=== PATIENT | female | born 1980 | race Caucasian/White ===

== ENCOUNTER 2019-06-11 21:04 | Observation (INO) ==
[2019-06-11] MEDS ORDERED: IOPAMIDOL 100 ML BOTTLE IV ONE (21:05)
[2019-06-11] MEDS ORDERED: ACETAMINOPHEN 325 MG TABLET PO ONE (21:29)
--- NOTE | 2019-06-11 21:33 | Emergency Department Note ---
General Adult HPI - General Chief complaint: Fever Stated complaint: body aches Time Seen by Provider: 06/11/19 21:10 Source: patient Mode of arrival: ambulatory Limitations: no limitations - History of Present Illness HPI Narrative: 39-year-old female patient presents to the emergency department with 2 days history of worsening aggressive myalgias and epigastric pain. Patient tells me her body aches extended from her feet up into her legs, they've gone into her arms, and into her back. She describes her epigastric pain as severe, sharp pain. She denies history of peptic ulcer disease or acid reflux. She was recently treated for a strep throat by her primary care provider 1 week ago with Augmentin. She denies active fevers fevers, sweats, or chills. She is febrile in triage 99.0. She denies photophobia or vision changes. She denies sinus congestion, runny nose, or cough. She denies throat pain today. She denies shortness of breath. She denies retrosternal chest pain or palpitations. She denies nausea, vomiting, or diarrhea. She denies focal weakness. Review of her active probably shows the following: Chronic left hip pain, seasonal affective disorder, essential hypertension, tobacco abuse, history of pulmonary embolism (10/2010) 5 and D deficiency, history of pelvic fracture (10/2010), obesity, low back pain, hyperlipidemia, and anemia. - Related Data Previous Rx's Medication Instructions Recorded bupropion HCl 150 mg 24 hr tablet, 150 mg PO QAM #90 tab 06/17/18 extended release gabapentin 100 mg capsule See Rx Instructions PO QHS #30 cap 10/20/18 tramadol 50 mg tablet See Dose Instructions PO QHS PRN 10/20/18 #30 tab Allergies Allergy/AdvReac Type Severity Reaction Status Date / Time lisinopril AdvReac Intermediate tickle in Verified 06/11/19 21:08 the throat Review of Systems All systems ED: reviewed and negative except as stated. Past Medical History - Social History smoking status: Current every day smoker Physical Exam Limitations: no limitations General appearance: alert, grimacing, other (patient appears acutely ill.) Head: atraumatic, normocephalic Eye: Present: normal appearance, PERRL, EOMI. Absent: scleral icterus, conjunctival injection ENT: Present: normal oropharynx, mucous membranes moist, TM's normal bilaterally, other (no tonsillar exudate or erythema.) Neck: Present: full ROM, trachea midline. Absent: tenderness, meningismus, lymphadenopathy Chest: Present: symmetric chest wall rise Respiratory: Present: normal lung sounds bilaterally. Absent: respiratory distress, wheezes, stridor, accessory muscle use, prolonged expiratory phase Cardiovascular: Present: regular rate, normal rhythm. Absent: systolic murmur, diastolic murmur Abdominal: Present: soft, tenderness, guarding, hyperactive bowel sounds (hyperactive bowel tones throughout.). Absent: distention, rebound, rigidity, organomegaly, mass Abdominal tenderness: Present: epigastrium, severe Extremities: Present: full ROM, tenderness, calf tenderness (bilateral tenderness). Absent: pedal edema, pretibial edema, joint swelling Back: Present: full ROM, tenderness. Absent: CVA tenderness (R) (tenderness throughout the entire back on exam.), CVA tenderness (L), muscle spasm, spinous process tenderness Neurological: Present: alert, oriented X3, CN II-XII intact, normal gait, reflexes normal. Absent: motor sensory deficit Psychiatric: Present: anxious Skin: Present: warm, dry, other (flushed) Course Course Narrative: Patient was brought into the emergency department and a history and physical exam was performed. Saline lock was established and laboratory studies were drawn. Influenza A/B swab was obtained. Due the patient's condition and a bdominal pain on exam a abdominal/pelvic CT scan with contrast was ordered. Normal saline at thousand milliliter bolus was provided. Acetaminophen 975 mg was given by mouth. Influenza swab was negative for A/P. At shift change I consulted with my collaborating physician (Dr. Natarajan) about the patient's condition and further evaluation. At this time Dr. Natarajan is will assume the patient's care moving forward. All further treatment decisions and modalities will be carried out by him. Vital Signs Temperature 99.2 F H 06/11/19 21:05 Pulse Rate 90 06/11/19 21:05 Respiratory Rate 18 06/11/19 21:05 Blood Pressure 168/94 06/11/19 21:05 Pulse Oximetry (%) 96 06/11/19 21:05 Temperature 99.2 F H 06/11/19 21:05 Pulse Rate 90 06/11/19 21:05 Respiratory Rate 18 06/11/19 21:05 Blood Pressure 168/94 06/11/19 21:05 Pulse Oximetry (%) 96 06/11/19 21:05 Disposition Pt seen by WASTEWATER TREATMENT ENGINEER/PA only: No (Dr. Natarajan) Clinical Impression: Myalgia Abdominal pain Qualifiers: Abdominal location: epigastric Qualified Code(s): R10.13 - Epigastric pain Disposition: Still a Patient Condition: Good Additional Instructions: At shift change Dr. Natarajan has assumed the patient's care. All further treatment decisions and modalities will be carried out by Dr. Natarajan at this time. Referrals: Carmelo Riggins PA-C [Primary Care Provider] - Time of Disposition: 21:56
[2019-06-11] MEDS ORDERED: 0.9 % SODIUM CHLORIDE 1,000 ML IV ONE (21:38)
[2019-06-11 21:56] LABS: POC Blood Urea Nitrogen 8 mg/dl (6-20); POC CO2 23 mmol/L (22-30); POC Chloride 104 mmol/L (96-108); POC Creatinine 0.6 mg/dl (0.6-1.1); POC Glucose, Random 114 mg/dL (70-105); POC Potassium 3.5 mmol/L (3.3-5.1); POC Sodium 138 mmol/L (133-145)
[2019-06-11 22:24] LABS: Basophils # (Auto) 0.1 K/mcL (0.0-0.3); Basophils % (Auto) 0.6 % (0.0-2.0); Eosinophils # (Auto) 0.2 K/mcL (0.0-0.7); Hematocrit 37.4 % (36.0-48.0); Hemoglobin 12.9 g/dL (12.0-15.0); Lymphocytes # (Auto) 1.9 K/mcL (1.5-4.8); Lymphocytes % (Auto) 12.4 % (15.5-49.0); Mean Cell Volume 87.9 fL (80.0-100.0); Mean Corpuscular HGB Conc 34.6 g/dL (31.0-36.0); Mean Platelet Volume 8.7 fL (7.4-10.4); Monocytes # (Auto) 1.4 K/mcL (0.1-0.9); Platelet Count 301 K/mcL (140-440); RBC 4.25 M/mcL (4.00-5.20); Red Cell Distribution Width 12.5 % (11.5-14.5); WBC 15.3 K/mcL (4.5-11.0)
[2019-06-11 22:47] LABS: ALT/SGPT 10 U/l (0-40); AST/SGOT 9 U/l (0-37); Albumin 3.8 gm/dL (3.2-5.2); Alkaline Phosphatase 60 U/L (39-117); Bilirubin,Total 0.4 mg/dL (0.0-1.0); Blood Urea Nitrogen 10 mg/dl (6-20); Calcium 8.8 mg/dl (8.6-10.4); Carbon Dioxide 21 mmol/L (22-30); Chloride 98 mmol/L (96-108); Globulin 3.7 gm/dL (2.2-3.7); Glomerular Filtration Rate 108; Glucose 113 mg/dL (70-105)
--- NOTE | 2019-06-11 23:19 | Emergency Department Note ---
General Adult HPI - General Chief complaint: Fever Stated complaint: body aches Time Seen by Provider: 06/11/19 21:10 Source: patient Mode of arrival: ambulatory Limitations: no limitations - History of Present Illness HPI Narrative: This 39-year-old patient is checked out to me at shift change by Luca Pruitt PA-C. Initially started the work-up and discussed the patient with me. After shift change Mr. Pruitt left, and I assumed full care of the patient. I reviewed his note and agree with his evaluation management and documentation. Additionally I interviewed the patient myself and confirmed his findings. She has right upper quadrant and epigastric pain is been going on for 2 days. She still has her gallbladder. - Related Data Previous Rx's Medication Instructions Recorded bupropion HCl 150 mg 24 hr tablet, 150 mg PO QAM #90 tab 06/17/18 extended release gabapentin 100 mg capsule See Rx Instructions PO QHS #30 cap 10/20/18 tramadol 50 mg tablet See Dose Instructions PO QHS PRN 10/20/18 #30 tab Allergies Allergy/AdvReac Type Severity Reaction Status Date / Time lisinopril AdvReac Intermediate tickle in Verified 06/11/19 21:08 the throat Past Medical History - Social History smoking status: Current every day smoker Physical Exam Arias sign positive. Epigastric tenderness noted Limitations: no limitations General appearance: alert, grimacing, other (patient appears acutely ill.) Course Vital Signs Temperature 99.2 F H 06/11/19 21:05 Pulse Rate 90 06/11/19 21:05 Respiratory Rate 18 06/11/19 21:05 Blood Pressure 168/94 06/11/19 21:05 Pulse Oximetry (%) 96 06/11/19 21:05 Temperature 100.1 F H 06/11/19 21:50 Pulse Rate 90 06/11/19 21:05 Respiratory Rate 18 06/11/19 21:05 Blood Pressure 168/94 06/11/19 21:05 Pulse Oximetry (%) 96 06/11/19 21:05 Medical Decision Making - Lab Data Lab results reviewed: Yes I reviewed the patient's lab results. Result diagrams: 06/11/19 21:40 06/11/19 21:40 Lab Results 06/11/19 06/11/19 06/11/19 Range/Units 21:40 21:40 21:40 WBC 15.3 H (4.5-11.0) K/mcL RBC 4.25 (4.00-5.20) M/mcL Hgb 12.9 (12.0-15.0) g/dL Hct 37.4 (36.0-48.0) % POC Hct 36.0 (36.0-48.0) % MCV 87.9 (80.0-100.0) fL MCH 30.4 (26.0-34.0) pg MCHC 34.6 (31.0-36.0) g/dL RDW 12.5 (11.5-14.5) % Plt Count 301 (140-440) K/mcL MPV 8.7 (7.4-10.4) fL Gran % 77.0 (38.0-78.0) % Lymph % (Auto) 12.4 L (15.5-49.0) % [place] % (Auto) 9.0 (1.0-12.0) % Eos % (Auto) 1.0 (0.0-7.0) % Baso % (Auto) 0.6 (0.0-2.0) % Gran # 11.7 H (1.8-8.0) K/mcL Lymph # (Auto) 1.9 (1.5-4.8) K/mcL [place] # (Auto) 1.4 H (0.1-0.9) K/mcL Eos # (Auto) 0.2 (0.0-0.7) K/mcL Baso # (Auto) 0.1 (0.0-0.3) K/mcL POC Sodium 138 (133-145) mmol/L Sodium 133 (133-145) mmol/L POC Potassium 3.5 (3.3-5.1) mmol/L Potassium 3.6 (3.3-5.1) mmol/L POC Chloride 104 (96-108) mmol/L Chloride 98 (96-108) mmol/L Carbon Dioxide 21 L (22-30) mmol/L POC Total CO2 23 (22-30) mmol/L Anion Gap 14.0 (8-16) POC BUN 8 (6-20) mg/dl BUN 10 (6-20) mg/dl Creatinine 0.7 (0.6-1.1) mg/dl POC Creatinine 0.6 (0.6-1.1) mg/dl GFR Calculation 108 Glucose 113 H (70-105) mg/dL POC Glucose 114 H (70-105) mg/dL Calcium 8.8 (8.6-10.4) mg/dl POC WB Ioniz Calcium 1.00 L (1.16-1.32) mmol/L Magnesium 2.1 (1.6-2.5) mg/dL Total Bilirubin 0.4 (0.0-1.0) mg/dL AST 9 (0-37) U/l ALT 10 (0-40) U/l Alkaline Phosphatase 60 (39-117) U/L Total Protein 7.5 (5.9-8.4) gm/dL Albumin 3.8 (3.2-5.2) gm/dL Globulin 3.7 (2.2-3.7) gm/dL Albumin/Globulin Ratio 1.0 (1.0-2.3) Lipase 17 (7-60) U/L Influenza swab is negative. Urinalysis [id number] dipstick is negative - Radiology Data Radiology results reviewed: Yes I reviewed the patient's radiology results. CT scan of the abdomen pelvis with contrast shows inflammation around the sydnie hepatis but otherwise normal scan Ultrasound of the gallbladder shows thickened wall but normal common bile duct. Shadow could be gallstone Disposition Pt seen by SHIRT MARKER/PA only: No Clinical Impression: Cholecystitis Summary: Initial laboratory and CT scan suggest a gallbladder cause so ultrasound is orde red. She is being treated with Tylenol for fever and IV fluids. We will add IV Nexium and Zofran After above-noted treatment her pain is getting better. However ultrasound exacerbated belly pain. We will give her a little bit more medicine and GI cocktail. I discussed findings with the patient and her significant other. I discussed case with Dr. Jude Villalpnado, general surgeon. Concerned that she has a fever and elevated white count in the setting of cholecystitis. He agreed to accept the patient for further care and evaluation in the hospital. I will write holding orders. We will keep her n.p.o. and treat her nausea and pain. He will visit with her in the morning Disposition: Xfer As Outpt/Obs ([facility]) Condition: Good Referrals: Carmelo Riggins PA-C [Primary Care Provider] -
[2019-06-11] MEDS ORDERED: ONDANSETRON 4 MG/2 ML VIAL IV ONE (23:21)
[2019-06-11] MEDS ORDERED: ESOMEPRAZOLE 40 MG VIAL IV SCH (23:30)
[2019-06-12] MEDS ORDERED: PHENobarb/HYOSCY/ATROPINE/SCOP 1 DOSE BOTTLE PO ONE (00:04)
[2019-06-12] MEDS: 0.9 % SODIUM CHLORIDE 1,000 ML IV SCH ×2 (01:00→11:47)
[2019-06-12] MEDS ORDERED: PIPERACILLIN SODIUM/TAZOBACTAM 3.375 GM in DEXTROSE 5% IN WATER 50 ML IV ONE (01:10)
[2019-06-12] MEDS ORDERED: NALOXONE HCL 0.4 MG/ML VIAL IV PRN (01:23)
[2019-06-12] MEDS: PIPERACILLIN SODIUM/TAZOBACTAM 3.375 GM in DEXTROSE 5% IN WATER 50 ML IV SCH ×4 (01:41→20:30)
[2019-06-12] MEDS ORDERED: HYDROmorphone 2 MG/ML VIAL ONE ×2 (01:49→05:00)
[2019-06-12 02:00] LABS: POC Calcium, Ionized 1.04 mmol/L (1.16-1.32)
[2019-06-12] MEDS ORDERED: ACETAMINOPHEN 1,000 MG/100 ML BOTTLE IV ONE (02:46)
[2019-06-12] MEDS: ACETAMINOPHEN 1,000 MG/100 ML BOTTLE IV SCH ×4 (03:02→19:41)
[2019-06-12] MEDS ORDERED: KETOROLAC 30 MG/ML VIAL ONE (05:00)
[2019-06-12] MEDS: ONDANSETRON 4 MG/2 ML VIAL IV PRN ×2 (05:10→17:10)
--- NOTE | 2019-06-12 06:22 | Cat Scan Report ---
CLINICAL INFORMATION: Epigastric pain for 2 days COMPARISON: Previous CT scan dated 11/08/2010 TECHNIQUE: Axial images were obtained through the abdomen and pelvis. Sagittally and coronally reformatted images. 80 mL Isovue 370 injected intravenously. FINDINGS: Lung bases:3 subpleural noncalcified pulmonary parenchymal nodules at the left lung base. These are unchanged since 2011 and are benign. Lung bases are otherwise negative. There is no pleural fluid. No pericardial fluid. Liver:Negative. No hepatic abnormality. The contour is smooth. There is no evidence for cirrhosis. There is no ascites Gallbladder, billary:Gallbladder is not distended. No calcified gallstones. There is no intra or extrahepatic bile duct dilatation. Gallbladder ultrasound may be helpful for further evaluation Spleen:Negative. No splenomegaly. Normal enhancement of splenic and portal veins Pancreas:No pancreatic mass. Pancreatic duct is not dilated. No significant peripancreatic inflammatory change. Adrenal glands:Negative Kidneys, ureters, bladder:Kidneys are negative. No solid or cystic mass. There is no hydronephrosis. There is a 4 mm nonobstructing left lower pole calculus. No ureteral calculi. No ureteral stone. There is no bladder stone. Gastrointestinal:Colon is negative. No detectable mass. There is no diverticulitis. Small bowel is negative. No mechanical small bowel obstruction. Appendix is negative. No appendicitis. Vascular:Abdominal aorta is negative. No abdominal aortic aneurysm Lymphatic:No retroperitoneal, para-aortic adenopathy. No pathologic mesenteric adenopathy Mesentery, peritoneum:No free intraperitoneal fluid. No intra-abdominal abscess. There is no pneumoperitoneum. Reproductive:Uterus is anteflexed. There is no adnexal mass Musculoskeletal:Lumbar vertebral body heights are normal. No compression deformities. Normal lumbar lordosis. Sacrum is negative. Patient has undergone extensive left hemipelvic surgery with plate and screw fixation for treatment of old pelvic fracture. There are 2 screws within the left pubic bone which into the extrapelvic soft tissues. No acute pelvic fracture. Hips are negative. Examination was initially interpreted by [facility] IMPRESSION: 1. Negative appendix 2. Gallbladder is collapsed. No calcified gallstones. No dilated bile ducts 3. Nonobstructing left lower pole renal calculus The exam was performed using radiation dose optimization techniques including, but not limited to, automated exposure control, adjustment of the mA and/or kV according to patient size and use of iterative reconstruction technique. Interpreted and Authenticated by: Andrew Aviles 06/12/19
--- NOTE | 2019-06-12 06:26 | Ultrasound Report ---
CLINICAL INFORMATION: Abdominal pain TECHNIQUE: Grayscale and color flow Doppler spectral imaging COMPARISON: None. FINDINGS: Gallbladder wall measures 2.8 mm. This is consistent with borderline thickening. There is no pericholecystic fluid. There are no gallstones. Common bile duct measures 5 mm. No intrahepatic bile duct dilatation Liver is negative. No focal intrahepatic abnormality. Liver contour is smooth. Visualized portions of pancreas are negative. Normal hepatopedal portal venous flow. Right kidney measures 12.7 x 4.8 x 5.1 cm. No solid or cystic mass IMPRESSION: 1. Borderline gallbladder wall thickening. No cholelithiasis. 2. Otherwise negative examination Interpreted and Authenticated by: Andrew Aviles 06/12/19
[2019-06-12] MEDS: HYDROmorphone 2 MG/ML VIAL IV PRN ×2 (09:40→18:00)
[2019-06-12] MEDS ORDERED: PROMETHAZINE 25 MG/ML VIAL IV PRN (10:24)
[2019-06-12 11:22] LABS: Basophils # (Auto) 0 K/mcL (0.0-0.3); Basophils % (Auto) 0.2 % (0.0-2.0); Eosinophils # (Auto) 0.1 K/mcL (0.0-0.7); Eosinophils % (Auto) 0.9 % (0.0-7.0); Granulocytes % (Auto) 78.6 % (38.0-78.0); Hemoglobin 11.8 g/dL (12.0-15.0); Lymphocytes # (Auto) 1.8 K/mcL (1.5-4.8); Lymphocytes % (Auto) 12.8 % (15.5-49.0); Mean Cell Volume 90.9 fL (80.0-100.0); Mean Corpuscular HGB Conc 33.7 g/dL (31.0-36.0); Mean Platelet Volume 8.4 fL (7.4-10.4); Monocytes % (Auto) 7.5 % (1.0-12.0); Platelet Count 254 K/mcL (140-440); RBC 3.85 M/mcL (4.00-5.20); Red Cell Distribution Width 13.4 % (11.5-14.5); WBC 13.7 K/mcL (4.5-11.0)
[2019-06-12] MEDS: ESOMEPRAZOLE 40 MG VIAL IV SCH ×2 (11:48→17:36)
--- NOTE | 2019-06-12 11:54 | General Surg History&Physical ---
History of Present Illness Patient information: Note initiated : 06/12/19 at 11:52 am Service Date, if different from initiated Date: [] Patient: Adonis Rogers a 39 y/o F admitted on 06/12/19 for body aches. Chief Complaint: [] HPI: Ms. Rogers is a 39 year old F admitted with abdominal pain and diffuse muscle aches. The patient developed severe abdominal pain and diffuse body aches, sore throat last week. She was seen in the emergency room and had swabbing for Streptococcus. However, the swab was negative. She nevertheless was treated with 7 days of amoxicillin and then felt fine. She later developed cramps and most of her muscles. This. Her thighs and arms were most involved. She had epigastric pain but no nausea and vomiting. She did not have diarrhea. No one else in the family has been ill. Patient was seen in the emergency room and had a CT of the abdomen which was nondiagnostic. She had an ultrasound of the upper abdomen which was nondiagnostic. She does not have gallstones. Labs reveal white count of 15,000. Her CMP does not reveal any elevation of liver transaminases and her lipase is also normal. Review of Systems - Constitutional weight loss (intentional 40 pound weight loss over the past year) - Respiratory no cough, no pain with cough - Gastrointestinal abdominal pain, dyspepsia, heartburn - Musculoskeletal arthralgias, muscle cramps, myalgias, stiffness - Integumentary no pruritus, no rash - Neurological no headache(s), no syncope, no tremor(s) - Psychiatric no anxiety, no depression - Hematologic/Lymphatic no easy bleeding, no easy bruising, no lymphadenopathy - Allergic/Immunologic no tongue swelling, no throat swelling, no uticaria, no wheezing, no lip swelling Past History Past medical history: History of hypertension which resolved with weight loss. Seasonal depression Chronic Pain Past surgical history: Left acetabular repair Past family history: Mother age 58, alive and well. Father age 60 with coronary artery disease, hypertension, diabetes mellitus. Siblings healthy Past social history: Tobacco one pack per day for over 15 years. Alcohol twice weekly Drugs denies use Medications and Allergies Home Medications Medication Instructions Recorded Confirmed Type bupropion HCl 150 mg 24 hr tablet, 150 mg PO QAM #90 tab 06/17/18 06/12/19 Rx extended release tramadol 50 mg tablet See Dose Instructions PO QHS PRN 10/20/18 06/12/19 Rx #30 tab Amoxicillin 500 mg PO TID 06/12/19 06/12/19 History Gabapentin [Neurontin] See Rx Instructions PO TIDP PRN 06/12/19 06/12/19 History Allergies Allergy/AdvReac Type Severity Reaction Status Date / Time lisinopril AdvReac Intermediate tickle in Verified 06/11/19 21:08 the throat Exam Temp Pulse Resp BP Pulse Ox 98.1 F 69 16 103/75 94 06/12/19 07:25 06/12/19 04:00 06/12/19 07:25 06/12/19 07:25 06/12/19 07:25 - General physical appearance well developed, well nourished, no distress, moderate pain - Eyes PERRL, normal ocular movement - ENT normal pinna, normal nares, normal mucosa, no hearing loss, no congestion - Head Head exam IM: Present: atraumatic, normocephalic - Neck no masses, no bruits, trachea midline, no lymphadenopathy, no venous distension - Cardiovascular Cardiovascular exam IM: Present: normal rate and rhythm, RRR, +S1, +S2. Absent: JVD, tachycardia - Respiratory normal expansion, normal respiratory effort, clear to auscultation - Abdomen Abdomen: Present: soft, tender (epigastric tenderness with mild guarding; diffuse lower abdominal tenderness; hyperactive bowel sounds), bowel sounds Hernia: Present: none - Genitourinary Present: normal external genitalia - Integumentary Present: no rash, no growths, no abnormal pigmentation - Neurologic Present: normal coordination, normal sensation - Musculoskeletal Present: normal gait, normal posture, other (diffuse soft tissue tenderness of upper extremities ; paraspinous muscle,. Thigh and calf bilaterally) - Psychiatric Present: oriented to time, oriented to person, oriented to place, speech is normal, memory intact Assessment and Plan (1) Abdominal pain May have clear liquids. Check CRP and sedimentation rate. Check CPK. Follow-up CBC in the a.m. Status: Acute (2) Pain of soft tissue of extremity Acetaminophen and Toradol for pain control Status: Acute
[2019-06-12 11:57] LABS: Erythrocyte Sedimentation Rate 82 mm/hr (0-20)
[2019-06-12] MEDS ORDERED: CYCLOBENZAPRINE 10 MG TABLET PO PRN (12:17)
[2019-06-12] MEDS: KETOROLAC 30 MG/ML VIAL IV PRN ×2 (13:04→19:40)
[2019-06-12] MEDS ORDERED: ESOMEPRAZOLE 40 MG VIAL IV SCH (17:00)
[2019-06-13] MEDS: 0.9 % SODIUM CHLORIDE 1,000 ML IV SCH ×2 (00:08→09:36)
[2019-06-13] MEDS: ACETAMINOPHEN 1,000 MG/100 ML BOTTLE IV SCH ×4 (01:32→19:44)
[2019-06-13] MEDS: KETOROLAC 30 MG/ML VIAL IV PRN ×3 (01:35→16:23)
[2019-06-13] MEDS: PIPERACILLIN SODIUM/TAZOBACTAM 3.375 GM in DEXTROSE 5% IN WATER 50 ML IV SCH ×4 (02:33→20:18)
[2019-06-13 05:29] LABS: Basophils # (Auto) 0 K/mcL (0.0-0.3); Basophils % (Auto) 0.2 % (0.0-2.0); Eosinophils # (Auto) 0.1 K/mcL (0.0-0.7); Eosinophils % (Auto) 0.8 % (0.0-7.0); Granulocytes % (Auto) 80.3 % (38.0-78.0); Hematocrit 32.2 % (36.0-48.0); Lymphocytes # (Auto) 1.7 K/mcL (1.5-4.8); Lymphocytes % (Auto) 11.9 % (15.5-49.0); Mean Cell Volume 90.3 fL (80.0-100.0); Mean Corpuscular HGB Conc 34.1 g/dL (31.0-36.0); Mean Platelet Volume 8.4 fL (7.4-10.4); Monocytes % (Auto) 6.8 % (1.0-12.0); Platelet Count 276 K/mcL (140-440); RBC 3.56 M/mcL (4.00-5.20); Red Cell Distribution Width 13.5 % (11.5-14.5); WBC 14.3 K/mcL (4.5-11.0)
[2019-06-13 06:10] LABS: Erythrocyte Sedimentation Rate 102 mm/hr (0-20)
[2019-06-13] MEDS: ESOMEPRAZOLE 40 MG VIAL IV SCH ×2 (07:48→16:23)
--- NOTE | 2019-06-13 13:34 | General Surgery Progress Note ---
Subjective Patient reports: feels better, pain is less, tolerating liquids well, flatus, afebrile Narrative: Note initiated : 06/13/19 at 1:32 pm Service Date, if different from initiated Date: [] Patient: Adonis Rogers 39 y/o F admitted on 06/12/19 for body aches. Chief Complaint: [patient still has significant soft tissue pain and joint pain. This is her primary concern. She does have some abdominal pain with it is significantly improved. She does not have nausea or vomiting. White blood count 14.3, hemoglobin 11, hematocrit 32.2, CRP 13, CK 39.] Objective Temp Pulse Resp BP Pulse Ox 98.2 F 82 18 139/91 97 06/13/19 08:00 06/13/19 08:00 06/13/19 08:00 06/13/19 08:00 06/13/19 08:00 - Additional Data Intake & Output - Last 24 hours: Intake & Output 06/11/19 06/12/19 06/13/19 06/14/19 06:59 05:59 05:59 05:59 Intake Total 3700 1047 Output Total 1400 400 Balance 2300 647 Weight 204 lb 14.4 oz - General physical appearance well developed, well nourished, moderate distress, moderate pain - Eyes PERRL, normal ocular movement - ENT normal pinna, normal nares, normal mucosa, no hearing loss, no congestion - Neck no masses, no bruits, trachea midline, no lymphadenopathy, no venous distension - Respiratory normal expansion, normal respiratory effort, clear to auscultation - Cardiovascular Cardiovascular exam: Present: normal rate and rhythm, RRR, +S1, +S2. Absent: JVD, tachycardia - Abdomen tender (mild epigastric tenderness), bowel sounds (. Normal active bowel sounds) - Integumentary no rash, no growths, no abnormal pigmentation - Neurologic normal coordination, normal sensation - Musculoskeletal normal gait, normal posture - Psychiatric oriented to time, oriented to person, oriented to place, speech is normal, memory intact - Labs 06/13/19 05:00 06/11/19 21:40 Assessment and Plan (1) Abdominal pain Status: Acute Assessment and plan: Symptoms significantly improved. Saline lock IV. Soft diet as tolerated Current Visit: Yes (2) Pain of soft tissue of extremity Status: Acute Assessment and plan: Solu-Medrol 62.5 mg IV every 12 hours 2 doses. Continue Toradol and acetaminophen Current Visit: Yes - Time Spent With Patient Total time spent is greater than 50% in coordination of care (as documented) at patient's floor/unit and/or counseling patient:
[2019-06-13] MEDS: methylPREDNISolone SOD SUCC 125 MG/2 ML VIAL IV SCH ×2 (14:43→23:29)
[2019-06-14] MEDS: ACETAMINOPHEN 1,000 MG/100 ML BOTTLE IV SCH ×2 (01:44→07:42)
[2019-06-14] MEDS: PIPERACILLIN SODIUM/TAZOBACTAM 3.375 GM in DEXTROSE 5% IN WATER 50 ML IV SCH ×2 (02:13→09:00)
[2019-06-14 06:58] LABS: Basophils # (Auto) 0 K/mcL (0.0-0.3); Basophils % (Auto) 0 % (0.0-2.0); Eosinophils # (Auto) 0 K/mcL (0.0-0.7); Eosinophils % (Auto) 0 % (0.0-7.0); Hematocrit 33.8 % (36.0-48.0); Hemoglobin 11.2 g/dL (12.0-15.0); Lymphocytes # (Auto) 0.8 K/mcL (1.5-4.8); Lymphocytes % (Auto) 5.2 % (15.5-49.0); Mean Cell Volume 90.6 fL (80.0-100.0); Mean Corpuscular HGB Conc 33.1 g/dL (31.0-36.0); Mean Platelet Volume 8.9 fL (7.4-10.4); Monocytes # (Auto) 0.1 K/mcL (0.1-0.9); Monocytes % (Auto) 0.8 % (1.0-12.0); Platelet Count 281 K/mcL (140-440); RBC 3.73 M/mcL (4.00-5.20); WBC 14.8 K/mcL (4.5-11.0)
[2019-06-14] MEDS: KETOROLAC 30 MG/ML VIAL IV PRN ×2 (07:41→13:41)
[2019-06-14] MEDS: ESOMEPRAZOLE 40 MG VIAL IV SCH (07:41)
[2019-06-14] MEDS: methylPREDNISolone SOD SUCC 125 MG/2 ML VIAL IV SCH (09:12)
--- NOTE | 2019-06-14 13:22 | Discharge Summary ---
Providers - Providers Patient information: Note initiated : 06/14/19 at 1:18 pm Service Date, if different from initiated Date: [] Patient: Adonis Rogers 39 y/o F admitted on 06/12/19 for body aches. Chief Complaint: [] Date of admission: 06/12/19 Discharge date: 06/14/19 Attending physician: Corrie Villalpando Hospitalization Hospital Course: 39-year-old female admitted on 12 June with complaint of abdominal pain and diffuse muscle aches. The patient has a history of severe abdominal pain and diffuse muscle aches and sore throat over the past week. She was seen in the emergency room where evaluation was negative. Pharyngeal swab for streptococcus was negative. However, she was treated with 7 days of amoxicillin. She then developed cramps and muscle aches which were more prominent in her thighs and arms. She had epigastric pain but no nausea or vomiting. She did not have diarrhea. CT scan was nondiagnostic. An ultrasound of the upper abdomen was nondiagnostic. White count was 15,000. She did not have any elevation of liver transaminases normal. Serum lipase elevated. Patient was admitted and treated symptomatically. She was allowed to have clear liquids. The following day her white count was still elevated and she still had significant muscle ache. CRP was 13. She was started on Solu-Medrol and was given 2 doses with improvement in all of her symptoms. She is clinically stable at this time, it in her muscle ache is significantly improved. White blood count is still 14.8, but she is otherwise stable. Patient will be discharged home on Solu-Medrol Dosepak for inflammatory myopathy, probably viral in origin. Discharge diagnosis: acute viral syndrome Secondary discharge diagnosis: Soft tissue pain of uncertain etiology Reason for admission: abdominal pain of uncertain etiology Pertinent studies/significant findings: None Complications: none Exam Temp Pulse Resp BP Pulse Ox 98.1 F 68 18 136/89 97 06/14/19 12:00 06/14/19 12:00 06/14/19 12:00 06/14/19 12:00 06/14/19 12:00 - General physical appearance well developed, well nourished, no distress - Eyes PERRL, normal ocular movement - ENT normal pinna, normal nares, normal mucosa, no hearing loss, no congestion - Head Head exam IM: Present: atraumatic, normocephalic - Neck no masses, no bruits, trachea midline, no lymphadenopathy, no venous distension - Cardiovascular Cardiovascular exam IM: Present: normal rate and rhythm - Respiratory normal expansion, normal respiratory effort, clear to percussion, clear to auscultation - Abdomen Abdomen: Present: soft, non tender, bowel sounds Hernia: Present: none - Genitourinary Present: normal external genitalia - Integumentary Present: no rash, no growths, no abnormal pigmentation - Neurologic Present: normal coordination, normal sensation - Musculoskeletal Present: normal gait, normal posture, other (bowel soft tissue tenderness especially of her prior lumbar muscles and her forearms) - Psychiatric Present: oriented to time, oriented to person, oriented to place, speech is normal, memory intact Discharge Plan - Patient/Caregiver Discharge Instructions Activity: increase activity as tolerated Diet: Regular Diet Prescriptions: predniSONE [Prednisone] 10 mg PO BID #10 [email or web address] Prescription Printed - Follow up Plan Follow up with: Carmelo Riggins PA-C [Primary Care Provider] - Disposition: Home, Self-Care Prognosis: Good Rehab Potential: Good I certify that the patient requires SNF services.: No Overall status at discharge: patient is progressing back to baseline Pending Studies Resuscitation Status Full Code Diet GI Soft/Transitional Start ThuJun 13 1336 Cyclobenzaprine HCl (Flexeril) 10 mg PO TIDP PRN PRN Reason: Muscle Spasm Last Admin: 06/12/19 17:36 Dose: 10 mg Documented by: MATILDA Esomeprazole Magnesium (Nexium) 40 mg IV BIDAC [facility] Last Admin: 06/14/19 07:41 Dose: 40 mg Documented by: Admin: 06/13/19 16:23 Dose: 40 mg Documented by: Admin: 06/13/19 07:48 Dose: 40 mg Documented by: Admin: 06/12/19 17:36 Dose: 40 mg Documented by: Admin: 06/12/19 11:48 Dose: 40 mg Documented by: JOSEPH Hydromorphone HCl (Dilaudid) 1 mg IV Q2HP PRN; Protocol PRN Reason: Per Pain Protocol Last Admin: 06/12/19 18:00 Dose: 1 mg Documented by: Admin: 06/12/19 09:40 Dose: 1 mg Documented by: [email or web address] Acetaminophen (Ofirmev) 1,000 mg in 100 mls @ 200 mls/hr IV Q6H LAKISHA; Protocol Last Infusion: 06/14/19 09:03 Dose: 0 mls/hr Documented by: Admin: 06/14/19 07:42 Dose: 200 mls/hr Documented by: Infusion: 06/14/19 02:14 Dose: 200 mls/hr Documented by: Admin: 06/14/19 01:44 Dose: 200 mls/hr Documented by: Infusion: 06/13/19 20:14 Dose: 200 mls/hr Documented by: Admin: 06/13/19 19:44 Dose: 200 mls/hr Documented by: Infusion: 06/13/19 16:22 Dose: 0 mls/hr Documented by: Admin: 06/13/19 14:28 Dose: 200 mls/hr Documented by: Infusion: 06/13/19 09:26 Dose: 0 mls/hr Documented by: Admin: 06/13/19 07:51 Dose: 200 mls/hr Documented by: Infusion: 06/13/19 02:02 Dose: 200 mls/hr Documented by: Admin: 06/13/19 01:32 Dose: 200 mls/hr Documented by: Infusion: 06/12/19 20:11 Dose: 200 mls/hr Documented by: Admin: 06/12/19 19:41 Dose: 200 mls/hr Documented by: Infusion: 06/12/19 14:34 Dose: 0 mls/hr Documented by: [facility] Admin: 06/12/19 14:04 Dose: 200 mls/hr Documented by: Infusion: 06/12/19 08:00 Dose: 0 mls/hr Documented by: Admin: 06/12/19 07:33 Dose: 200 mls/hr Documented by: Admin: 06/12/19 03:02 Dose: Not Given Documented by: NSTOVER Piperacillin Sod/Tazobactam (Sod 3.375 gm/ Dextrose) 50 mls @ 100 mls/hr IV Q6H LAKISHA; Protocol Last Infusion: 06/14/19 09:56 Dose: 0 mls/hr Documented by: Admin: 06/14/19 09:00 Dose: 100 mls/hr Documented by: Infusion: 06/14/19 02:45 Dose: 0 mls/hr Documented by: Admin: 06/14/19 02:13 Dose: 100 mls/hr Documented by: Infusion: 06/13/19 20:48 Dose: 100 mls/hr Documented by: Admin: 06/13/19 20:18 Dose: 100 mls/hr Documented by: Infusion: 06/13/19 15:35 Dose: 0 mls/hr Documented by: Admin: 06/13/19 15:00 Dose: 100 mls/hr Documented by: Infusion: 06/13/19 10:15 Dose: 0 mls/hr Documented by: Admin: 06/13/19 09:26 Dose: 100 mls/hr Documented by: Infusion: 06/13/19 03:03 Dose: 100 mls/hr Documented by: Admin: 06/13/19 02:33 Dose: 100 mls/hr Documented by: Infusion: 06/12/19 21:00 Dose: 100 mls/hr Documented by: Admin: 06/12/19 20:30 Dose: 100 mls/hr Documented by: Infusion: 06/12/19 15:05 Dose: 0 mls/hr Documented by: Admin: 06/12/19 14:34 Dose: 100 mls/hr Documented by: [email or web address] Ketorolac Tromethamine (Toradol) 30 mg IV Q6HP PRN PRN Reason: Per Pain Protocol Last Admin: 06/14/19 07:41 Dose: 30 mg Documented by: Admin: 06/13/19 16:23 Dose: 30 mg Documented by: Admin: 06/13/19 09:36 Dose: 30 mg Documented by: Admin: 06/13/19 01:35 Dose: 30 mg Documented by: Admin: 06/12/19 19:40 Dose: 30 mg Documented by: Admin: 06/12/19 13:04 Dose: 30 mg Documented by: JOSEPH Methylprednisolone Sodium Succinate (Solu-Medrol) 62.5 mg IV Q12 LAKISHA Last Admin: 06/14/19 09:12 Dose: 62.5 mg Documented by: Admin: 06/13/19 23:29 Dose: 62.5 mg Documented by: Admin: 06/13/19 14:43 Dose: 62.5 mg Documented by: AALIYAH Ondansetron HCl (Zofran) 4 mg IV Q4HP PRN PRN Reason: Nausea And Vomiting Last Admin: 06/12/19 17:10 Dose: 4 mg Documented by: Admin: 06/12/19 05:10 Dose: 4 mg Documented by: DARRYL Shift Summary 06/14/19 03:00 Shift Summary by Tricia Montanez Pt slept well tonight; at bedside. Steroids are helping w/body & joint aches more than pain meds. Has not needed pain meds as often tonight. Up ad carla; voiding well. Plan is to d/c home today Initialized on 06/14/19 03:00 - END OF NOTE
== END 2019-06-14 14:20 | disposition home or self-care (01) ==
LOC: ED 21:04 → MEDSUR 21:04
PROVIDERS: ADMIT Family Medicine Adult Medicine; ATTEND Family Medicine Adult Medicine